=== PATIENT | female | born 1990 | race Hispanic/Latino ===

== ENCOUNTER 2020-06-08 22:54 | Observation (INO) | payer BC ==
[~2020-06-08] VITALS: Ht 165.1 cm; Wt 56.7 kg
[2020-06-08 23:43] LABS: BASOPHILS % (AUTO) 0.2 % (0.0-5.0); EOSINOPHILS % (AUTO) 1.3 % (0.0-8.0); HEMATOCRIT 35.1 % (36-48); LYMPHOCYTES % (AUTO) 29.7 % (21.0-51.0); MEAN CORPUSCULAR HEMOGLOBIN 32.1 pg (27.0-33.0); MEAN CORPUSCULAR HGB CONC 35.6 g/dL (32.0-36.0); MONOCYTES % (AUTO) 6.2 % (3.0-13.0); NEUTROPHILS % (AUTO) 62.1 % (40.0-77.0); PLATELET COUNT (AUTO) 241 K/uL (130-400); RED CELL DISTRIBUTION WIDTH 13.2 % (11.0-15.5); WHITE BLOOD COUNT (AUTO) 8.7 K/uL (4.8-10.8)
[2020-06-08 23:50] LABS: CREATININE 0.4 mg/dL (0.5-1.5); POTASSIUM 3.6 mmol/L (3.5-5.1)
[2020-06-08 23:56] LABS: BILIRUBIN,URINE Negative (NEGATIVE); COLOR,URINE Yellow (YELLOW); GLUCOSE, URINE (UA) Negative (NEGATIVE); KETONES,URINE Negative (NEGATIVE); LEUKOCYTE ESTERASE ,URINE Trace (NEGATIVE); NITRATE,URINE Negative (NEGATIVE); OCCULT BLOOD,URINE Large (NEGATIVE); PH,URINE 7.5 (5.0-8.0); PROTEIN,URINE Negative (NEGATIVE); UROBILINOGEN,URINE 0.2 mg/dL (0.2-1.0)
[2020-06-09 00:17] LABS: ALBUMIN 3.6 g/dL (3.5-5.0); BILIRUBIN,TOTAL 0.2 mg/dL (0.2-1.0); TOTAL PROTEIN, SERUM 7.4 g/dL (6.0-8.3)
[2020-06-09 00:27] LABS: APPEARANCE,URINE SLIGHTLY CLOUDY (CLEAR)
[2020-06-09 00:29] LABS: BACTERIA,URINE Few /HPF (None Seen); MUCUS,URINE Moderate LPF (None Seen); SQUAMOUS EPITHELIAL CELL,UR Moderate /HPF (0-2)
[2020-06-09] MEDS ORDERED: ACETAMINOPHEN EXTRA STRENGTH 500 MG TABLET ONE (02:05)
[2020-06-09] MEDS ORDERED: MAGNESIUM 2GM PREMIX 50ML 100 ML IV ONE (03:34)
[2020-06-09] MEDS ORDERED: AMPICILLIN 2GM+NS 100ML 100 ML IV SCH (05:00)
[2020-06-09] MEDS ORDERED: MAGNESIUM SULFATE 1,000 ML IV ONE (05:35)
[2020-06-09] MEDS ORDERED: MAGNESIUM SULFATE 1,000 ML IV SCH (06:00)
[2020-06-09 06:30] VITALS: BP 112/63
[2020-06-09] MEDS ORDERED: PREN-196 PO (06:30)
[2020-06-09] MEDS ORDERED: AMPICILLIN 1GM+NS 50ML 50 ML IV SCH (09:00)
[2020-06-09] MEDS ORDERED: LACTATED RINGERS 1000ML 1,000 ML IV SCH (09:15)
[2020-06-09 09:44] LABS: APPEARANCE,URINE Clear (CLEAR); BILIRUBIN,URINE Negative (NEGATIVE); COLOR,URINE Yellow (YELLOW); GLUCOSE, URINE (UA) Negative (NEGATIVE); KETONES,URINE Trace mg/dL (NEGATIVE); LEUKOCYTE ESTERASE ,URINE Negative (NEGATIVE); NITRATE,URINE Negative (NEGATIVE); OCCULT BLOOD,URINE Nonhemolyzed Trace (NEGATIVE); PROTEIN,URINE Negative (NEGATIVE); UROBILINOGEN,URINE 0.2 mg/dL (0.2-1.0)
[2020-06-09 09:49] LABS: BACTERIA,URINE Few /HPF (None Seen)
[2020-06-09 09:50] LABS: WBC,URINE 0-1 /HPF (0-1)
[2020-06-09 11:53] LABS: HEMATOCRIT 35.6 % (36-48); MEAN CORPUSCULAR HEMOGLOBIN 32.3 pg (27.0-33.0); MEAN CORPUSCULAR HGB CONC 34.3 g/dL (32.0-36.0); MEAN CORPUSCULAR VOLUME 94.2 fL (79-99); RED BLOOD CELL COUNT(AUTO) 3.78 MIL/uL (4.00-5.50); RED CELL DISTRIBUTION WIDTH 13.6 % (11.0-15.5); WHITE BLOOD COUNT (AUTO) 9.8 K/uL (4.8-10.8)
[2020-06-09 14:09] LABS: RAPID PLASMA REAGIN NONREACTIVE (NONREACTIVE)
[2020-06-10 08:14] LABS: HEPATITIS Bs ANTIGEN SCREEN P Negative (Negative)
== END 2020-06-09 13:31 | disposition home or self-care (01) ==
LOC: EDH 22:54 → LDH 06-09 02:19
PROVIDERS: ADMIT Obstetrics & Gynecology; ATTEND Obstetrics & Gynecology
DX: O46.92 Antepartum hemorrhage, unspecified, second trimester (principal); Z3A.14 14 weeks gestation of pregnancy
CPT/HCPCS: 36415 ×2; 76801; 80053; 81001; 84702; 85025; 85027; 86592; 86701; 86850; 86900; 86901; 87340; 87390; 99284; A4351; G0378 ×9; J0290; J3475 ×2

== ENCOUNTER 2020-11-15 16:26 | Observation (INO) | payer BC ==
[~2020-11-15] VITALS: Ht 165.1 cm; Wt 71.2 kg
[~2020-11-15 16:26] MED LIST: PREN-196 PO
[2020-11-15 16:53] VITALS: BP 118/63
[2020-11-15 17:01] LABS: APPEARANCE,URINE Cloudy (CLEAR); BILIRUBIN,URINE Negative (NEGATIVE); COLOR,URINE Yellow (YELLOW); GLUCOSE, URINE (UA) Negative (NEGATIVE); KETONES,URINE Negative (NEGATIVE); LEUKOCYTE ESTERASE ,URINE Small (NEGATIVE); NITRATE,URINE Negative (NEGATIVE); OCCULT BLOOD,URINE Negative (NEGATIVE); PH,URINE 6.5 (5.0-8.0); PROTEIN,URINE Negative (NEGATIVE)
[2020-11-15 17:18] LABS: AMORPHOUS SEDIMENT,UR Rare /LPF (None Seen); BACTERIA,URINE Rare /HPF (None Seen); RBC,URINE 0-1 /HPF (0-1); SQUAMOUS EPITHELIAL CELL,UR Few /HPF (0-2)
== END 2020-11-15 17:38 | disposition home or self-care (01) ==
LOC: LDH 16:26
PROVIDERS: ADMIT Obstetrics & Gynecology; ATTEND Obstetrics & Gynecology
DX: O99.891 Other specified diseases and conditions complicating pregnancy (principal); M54.5 Low back pain; Z88.5 Allergy status to narcotic agent; Z3A.37 37 weeks gestation of pregnancy
CPT/HCPCS: 59025; 81001; 99283; G0378

== ENCOUNTER 2020-11-20 13:42 | Inpatient (IN) | payer BC ==
[~2020-11-20] VITALS: Ht 165.1 cm; Wt 71.2 kg
[2020-11-20 14:16] LABS: APPEARANCE,URINE Clear (CLEAR); BILIRUBIN,URINE Negative (NEGATIVE); COLOR,URINE Yellow (YELLOW); GLUCOSE, URINE (UA) Negative (NEGATIVE); KETONES,URINE Negative (NEGATIVE); LEUKOCYTE ESTERASE ,URINE Small (NEGATIVE); NITRATE,URINE Negative (NEGATIVE); OCCULT BLOOD,URINE Nonhemolyzed Trace (NEGATIVE); PH,URINE 6.5 (5.0-8.0); PROTEIN,URINE Negative (NEGATIVE)
[2020-11-20] MEDS ORDERED: LACTATED RINGERS 1000ML 1,000 ML IV PRN (14:30)
[2020-11-20 14:33] VITALS: BP 123/77
[2020-11-20 14:36] LABS: BACTERIA,URINE Few /HPF (None Seen); MUCUS,URINE Few LPF (None Seen); SQUAMOUS EPITHELIAL CELL,UR Moderate /HPF (0-2)
[2020-11-20 14:43] LABS: HEMATOCRIT 30.6 % (36-48); MEAN CORPUSCULAR HEMOGLOBIN 25.8 pg (27.0-33.0); MEAN CORPUSCULAR HGB CONC 32.4 g/dL (32.0-36.0); MEAN CORPUSCULAR VOLUME 79.9 fL (79-99); RED BLOOD CELL COUNT(AUTO) 3.83 MIL/uL (4.00-5.50); WHITE BLOOD COUNT (AUTO) 7.9 K/uL (4.8-10.8)
[2020-11-20] MEDS ORDERED: LACTATED RINGERS 500 ML 500 ML IV PRN (15:00)
[2020-11-20] MEDS ORDERED: ROPIVACAINE 0.2% 100ML VIAL 100 ML EP SCH (15:00)
[2020-11-20] MEDS ORDERED: NALOXONE HCL 0.4 MG/1 ML ML IV PRN (15:00)
[2020-11-20] MEDS ORDERED: EPHEDRINE SULFATE 50 MG/ML AMPULE IVP PRN (15:00)
[2020-11-20] MEDS ORDERED: AMPICILLIN 2GM+NS 100ML 100 ML IV SCH (17:15)
[2020-11-20] MEDS: AMPICILLIN 1GM+NS 50ML 50 ML IV SCH (21:55)
[2020-11-21] MEDS: AMPICILLIN 1GM+NS 50ML 50 ML IV SCH ×3 (02:31→10:45)
[2020-11-21] MEDS ORDERED: OXYTOCIN-LR 20 UNITS/1000 ML 1,000 ML IV SCH ×2 (04:00→13:30)
[2020-11-21] MEDS ORDERED: FENTANYL CITRATE PF 50 MCG/1 ML 2ML VIAL ONE (06:31)
[2020-11-21] MEDS ORDERED: LIDOCAINE 2%-EPI 1:200,000 20 ML VIAL IJ ONE (10:28)
[2020-11-21] MEDS ORDERED: MEASLES/MUMPS/RUBELLA VACCINE, LIVE 0.5 ML/VIAL SQ PRN (13:30)
[2020-11-21] MEDS ORDERED: WITCH HAZEL 1 PAD TP PRN (13:30)
[2020-11-21] MEDS ORDERED: DIPH,PERTUSS(ACELL),TET VAC/PF 0.5 ML VIAL IM PRN (13:30)
[2020-11-21] MEDS ORDERED: ACETAMINOPHEN WITH CODEINE 1 TAB TAB PO PRN (13:30)
[2020-11-21] MEDS ORDERED: ACETAMINOPHEN 325 MG TAB PO PRN (13:30)
[2020-11-21] MEDS ORDERED: BENZOCAINE/LANOLIN/ALOE VERA 60 ML AEROSOL TP PRN (13:30)
[2020-11-21] MEDS ORDERED: LANOLIN 30GM OINTMENT TP PRN (13:30)
[2020-11-21] MEDS: IBUPROFEN 600 MG TABLET PO PRN ×2 (15:18→20:57)
[2020-11-21 16:30] VITALS: BP 136/70
[2020-11-21 20:00] VITALS: BP 114/68
[2020-11-21] MEDS: DOCUSATE SODIUM 100 MG CAP PO SCH (20:57)
[2020-11-21] MEDS ORDERED: PREN1TAB63 PO (21:19)
[2020-11-21] MEDS ORDERED: ASCO500C18 PO (21:19)
[2020-11-21 23:32] VITALS: BP 118/59
[2020-11-22 03:55] VITALS: BP 121/60
[2020-11-22] MEDS: IBUPROFEN 600 MG TABLET PO PRN ×2 (04:39→14:10)
[2020-11-22 06:25] LABS: MEAN CORPUSCULAR HEMOGLOBIN 25.9 pg (27.0-33.0); MEAN CORPUSCULAR HGB CONC 32.1 g/dL (32.0-36.0); MEAN CORPUSCULAR VOLUME 80.7 fL (79-99); RED BLOOD CELL COUNT(AUTO) 3.47 MIL/uL (4.00-5.50); RED CELL DISTRIBUTION WIDTH 14.1 % (11.0-15.5)
[2020-11-22 07:40] VITALS: BP 110/66
[2020-11-22] MEDS: DOCUSATE SODIUM 100 MG CAP PO SCH (09:08)
[2020-11-22 11:50] VITALS: BP 133/72
[2020-11-23 03:09] LABS: HEPATITIS Bs ANTIGEN SCREEN P Negative (Negative)
== END 2020-11-22 14:45 | disposition home or self-care (01) | DRG 807 ==
LOC: EDH 13:42 → OBSVTOIN 13:43 → LDH 13:43 → WSH 11-21 16:20
PROVIDERS: ADMIT Obstetrics & Gynecology; ATTEND Obstetrics & Gynecology
PROC: 10E0XZZ Delivery of Products of Conception, External Approach (ICD-10-PCS; principal; 2020-11-21)
PROC: 0KQM0ZZ Repair Perineum Muscle, Open Approach (ICD-10-PCS; 2020-11-21)
PROC: 10907ZC Drainage of Amniotic Fluid, Therapeutic from Products of Conception, Via Natural or Artificial Opening (ICD-10-PCS; 2020-11-21)
PROC: 00HU33Z Insertion of Infusion Device into Spinal Canal, Percutaneous Approach (ICD-10-PCS; 2020-11-21)
PROC: 3E0R3BZ Introduction of Anesthetic Agent into Spinal Canal, Percutaneous Approach (ICD-10-PCS; 2020-11-21)
PROC: 3E0134Z Introduction of Serum, Toxoid and Vaccine into Subcutaneous Tissue, Percutaneous Approach (ICD-10-PCS; 2020-11-21)
PROC: 3E0234Z Introduction of Serum, Toxoid and Vaccine into Muscle, Percutaneous Approach (ICD-10-PCS; 2020-11-21)
DX: O69.81X0 Labor and delivery complicated by cord around neck, without compression, not applicable or unspecified (principal); Z37.0 Single live birth; O70.1 Second degree perineal laceration during delivery; Z3A.38 38 weeks gestation of pregnancy; Z23 Encounter for immunization
CPT/HCPCS: 36415; 81001; 85027; 86592; 86850; 86900; 86901; 87340; A4314; A4351; G0378; J0290; J2590; J2795; J3010; J3490; J7120